=== PATIENT | male | born 1965 | race African-American/Black ===

== ENCOUNTER → 2017-07-07 | Outpatient (CLI) | payer MEDICAID ==
[~2017-07-07] MED LIST: ALBUAER3 INH; AMLO10 PO; ATOR40TA16 PO; HYDR50TA3 PO; INFL1INJ54 IM; IPRAAER INH; LOSA50TA PO; MIRA3350 PO; OXYC-395 PO; PEGPOW2; PNEU25IN IM; PROT40TA PO; TOPR100T PO
[2017-07-07 09:32] LABS: HEMATOCRIT 43.1 % (39.0-51.0); MEAN CELL VOLUME 86.8 FL (80.0-100.0); MEAN CORPUSCULAR HEMOGLOBIN 29.9 PG (27.0-34.0); MEAN CORPUSCULAR HGB CONC 34.4 % (32.0-36.0); PLATELET COUNT 253 TH/MM3 (150-450); RED BLOOD COUNT 4.97 MIL/MM3 (4.50-5.90); RED CELL DISTRIBUTION WIDTH 15.4 % (11.6-17.2); REVIEW FLAG FINAL; WHITE BLOOD COUNT 9.6 TH/MM3 (4.0-11.0)
[2017-07-07 09:34] LABS: APTT (PATIENT) 27.1 SEC (24.3-30.1); PROTHROMBIN TIME - PATIENT 10.6 SEC (9.8-11.6)
[2017-07-07 09:48] LABS: BICARBONATE 27.6 MEQ/L (21.0-32.0); POTASSIUM 3.6 MEQ/L (3.5-5.1)
--- NOTE | 2017-07-07 11:07 | RADRPT ---
EXAM DATE/TIME: 07/07/2017 10:14 [facility] COMPARISON: No previous studies available for comparison. INDICATIONS : Evaluate for pneumonia, pneumothorax or communicable disease. Pre op neck surgery. MEDICAL HISTORY : None. SURGICAL HISTORY : None. ENCOUNTER: Initial ACUITY: 1 day PAIN SCORE: 0/10 LOCATION: Bilateral chest FINDINGS: PA and lateral views of the chest demonstrate the lungs to be symmetrically aerated without evidence of mass, infiltrate or effusion. The cardiomediastinal contours are unremarkable. Osseous structure s are intact. CONCLUSION: Normal examination. Clayton Oh MD on July 07, 2017 at 11:05 Board Certified Radiologist. This report was verified electronically.
--- NOTE | 2017-07-07 14:04 | EKG ---
Date Performed: 07/07/2017 Time Performed: 09:20:24 PTAGE: 51 years EKG: Sinus rhythm IV conduction defect LVH with secondary repolarization abnormality Extensive ST-T changes may be due to hypertrophy and/or ischemia Abnormal ECG No significant change from prior electrocardiogram. PREVIOUS TRACING : 09/15/2013 19.46 DOCTOR: Tejas Lujan Interpretating Date/Time 07/07/2017 14:03:32
== END ==
LOC: CPRE 08:58
PROVIDERS: ATTEND Neurological Surgery
DX: Z01.812 Encounter for preprocedural laboratory examination (principal); Z01.811 Encounter for preprocedural respiratory examination; Z01.810 Encounter for preprocedural cardiovascular examination; M50.00 Cervical disc disorder with myelopathy, unspecified cervical region; M48.02 Spinal stenosis, cervical region; R94.31 Abnormal electrocardiogram [ECG] [EKG]
CPT/HCPCS: 36415; 71020; 80048; 85027; 85610; 85730; 93005

== ENCOUNTER 2017-07-14 05:49 | Observation (INO) | payer MEDICAID ==
[~2017-07-14] VITALS: Ht 180.3 cm; Wt 121.4 kg
[~2017-07-14 05:49] MED LIST changes: -ATOR40TA16 PO; -MIRA3350 PO; -PEGPOW2
[2017-07-14] MEDS ORDERED: POVIDONE IODINE 5% (ANTISEPSIS KIT) 4 APPLICATIONS EACH NARE PRN (06:00)
[2017-07-14] MEDS ORDERED: LACTATED RINGER'S 1000 ML IV PRN (06:00)
[2017-07-14] MEDS ORDERED: CHLORHEXIDINE GLUCONATE 2 % 1 PACK (2 CLOTHS) TOPICAL PRN (06:00)
[2017-07-14] MEDS ORDERED: SODIUM CHLORID 0.9% 500 ML IV PRN (06:00)
[2017-07-14] MEDS ORDERED: METOPROLOL TARTRATE 25 MG TAB PO PRN (06:00)
[2017-07-14] MEDS ORDERED: LACTATED RINGER'S 1000 ML INJ 1,000 ML IV SCH (06:15)
[2017-07-14] MEDS ORDERED: GENTAMICIN SULFATE 80 MG/2 ML VIAL ONE (07:02)
[2017-07-14] MEDS ORDERED: GELFOAM SIZE 100 ONE (07:02)
[2017-07-14] MEDS ORDERED: THROMBIN (TOPICAL) 5,000 UNIT VIAL ONE (07:02)
[2017-07-14] MEDS ORDERED: LIDOCAINE 1%/EPINEPHrine 1:100,000 SOLN 20 ML VIAL ONE (07:03)
[2017-07-14] MEDS ORDERED: ACETAMINOPHEN 1000 MG/100 ML 100 ML IV ONE (07:43)
[2017-07-14] MEDS ORDERED: HYDROmorphone HCL PF 2 MG/ML VIAL ONE (07:43)
[2017-07-14] MEDS ORDERED: PROPOFOL 500 MG/50 ML INJ 0 ML ONE (08:07)
[2017-07-14] MEDS: ceFAZolin 2 GM PREMIX 50 ML IV SCH ×2 (08:15→12:16)
[2017-07-14] MEDS ORDERED: PROPOFOL 200 MG/20 ML AMP ONE (11:29)
[2017-07-14] MEDS ORDERED: LIDOCAINE HCL 1% PF 5 ML SYRINGE OTHER ONE (12:00)
[2017-07-14] MEDS ORDERED: PHENYLEPH/NS 1000 MCG/10 ML SYR IV ONE (12:00)
[2017-07-14] MEDS ORDERED: NORMOSOL R INJ 2,000 ML IV ONE (12:00)
[2017-07-14] MEDS ORDERED: ePHEDrine/NS 25 MG/5 ML SYRINGE IV ONE (12:00)
[2017-07-14] MEDS ORDERED: ceFAZolin INJ 1,000 MG VIAL IV ONE (12:00)
[2017-07-14] MEDS ORDERED: GLYCOPYRROLATE 1 MG/5 ML SYRINGE IV PUSH ONE (12:00)
[2017-07-14] MEDS ORDERED: ONDANSETRON HCL 4 MG/2 ML VIAL IV ONE (12:00)
[2017-07-14] MEDS ORDERED: PROPOFOL 200 MG/20 ML AMP IV ONE (12:00)
[2017-07-14] MEDS ORDERED: SODIUM CHLORID 0.9% 500 ML INJ 500 ML IV ONE (12:00)
[2017-07-14] MEDS ORDERED: DEXAMETHASONE SOD PHOS 4 MG/ML VIAL IV ONE (12:00)
[2017-07-14] MEDS ORDERED: ROCURONIUM INJ 50 MG/5 ML SYRINGE IV PUSH ONE (12:00)
[2017-07-14] MEDS ORDERED: SUCCINYLCHOLINE CHLORIDE 100 MG/5 ML SYRINGE IV PUSH ONE (12:00)
[2017-07-14] MEDS ORDERED: LACTATED RINGER'S 1000 ML INJ 1,000 ML IV ONE (12:00)
[2017-07-14] MEDS ORDERED: PROPOFOL 500 MG/50 ML INJ 100 ML ONE ×2 (12:24→14:23)
[2017-07-14] MEDS ORDERED: DEXMEDETOMIDINE HCL 200 MCG/2 ML VIAL ONE (14:23)
[2017-07-14] MEDS ORDERED: DO NOT ADM ANY ANTICOAGULANT DRUGS PRN (15:39)
[2017-07-14] MEDS ORDERED: NON-FORMULARY DRUG (Ipratropium-Albuterol Inh (Combivent Respimat Inh) 1 PUFF) INH PRN (16:30)
[2017-07-14] MEDS ORDERED: ONDANSETRON HCL 4 MG/2 ML VIAL IV PUSH PRN (16:30)
[2017-07-14] MEDS ORDERED: ALBUTEROL SULFATE 90 MCG/ACT HFA 8 GM INHALER INH PRN (16:30)
[2017-07-14] MEDS ORDERED: ACETAMINOPHEN/HYDROcodone 325 MG/10 MG TAB PO PRN (16:30)
[2017-07-14] MEDS ORDERED: ACETAMINOPHEN/HYDROcodone 325 MG/5 MG TAB PO PRN (16:30)
[2017-07-14] MEDS ORDERED: NALOXONE HCL 0.4 MG/ML AMP IV PUSH PRN ×2 (16:30)
[2017-07-14] MEDS ORDERED: MORPHINE SULFATE 4 MG/ML INJ IV PUSH PRN (16:30)
--- NOTE | 2017-07-14 16:32 | RADRPT ---
EXAM DATE/TIME: 07/14/2017 09:38 [facility] COMPARISON: No previous studies available for comparison. INDICATIONS : c6-c7 ACDF. MEDICAL HISTORY : None. SURGICAL HISTORY : None. ENCOUNTER: Initial ACUITY: 1 day PAIN SCORE: 0/10 LOCATION: Bilateral c-spine FINDINGS: 3 fluoroscopic images of the cervical spine are available. There is a disc replacement in the upper c ervical spine. An anterior radiopaque marker is noted anterior to the lower cervical spine. Definitiv e numbering is not possible due to nonvisualization of C2. CONCLUSION: 1. Intraoperativecervical spine images, as above. Jovani Estevez MD on July 14, 2017 at 16:28 Board Certified Radiologist. This report was verified electronically.
--- NOTE | 2017-07-14 16:39 | PD.OP ---
Operative Report Date of Surgery: Jul 14, 2017 Preoperative Diagnosis: (1) Cervical disc disease with myelopathy 1. C3-4 herniated nucleus pulposis 2. Severe C3-4 stenosis with spinal cord compression 3. C6-7 degenerative disc disease 4. C6-7 stenosis with cord compression 5. Cervical myelopathy Postoperative Diagnosis: (1) Cervical disc disease with myelopathy 1. C3-4 herniated nucleus pulposis 2. Severe C3-4 stenosis with spinal cord compression 3. C6-7 degenerative disc disease 4. C6-7 stenosis with cord compression 5. Cervical myelopathy Procedure: Procedure #1: 1. C3-4 anterior cervical discectomy, resection herniated nucleus pulposus 2. C3-4 cervical artificial disc placement (Mobi-C) Procedure #2: Via separate incision 1. C6-7 anterior cervical discectomy, resection posterior osteophytic disc complex, bilateral foraminotomy-microtechnique 2. C6-7 anterior cervical interbody fusion, composite allograft bone 3. C6-7 anterior cervical instrumentation Anesthesia: Gen. Surgeon: Aron Bermudez Bit Tripoler(s): Hodan Arreaga Operation and Findings: Findings: Large sequestered disc herniation at the central to right C3 4 level Prominent posterior osteophytic disc complexes at the C6-7 level Procedure in detail: The patient was brought into the operating room and positioned in supine position on the 3080 table with the head and neck in neutral position. Yang catheter was placed. Lines were established by Anesthesia. Gen. endotracheal anesthesia was induced without difficulty, taking care not to significantly flex or extend the patient's neck during intubation and positioning. Leads for intraoperative neuro monitoring were placed and a baseline study obtained. All extremities were appropriately padded. The neck and upper chest were shaved with clippers and sterilely prepped and draped. Appropriate timeout procedure was performed with all personnel present and in agreement 1% Xylocaine with epinephrine was used for local infiltration over the incision site which was made transversely at the C3-4 level and carried sharply down through the platysma muscle. The exposure was continued medial to the sternocleidomastoid muscle and carotid artery, and lateral to the trachea and esophagus. The prevertebral fascia was elevated away from the anterior longitudinal ligament with a Kitner sponge. The longus coli muscle on each side was elevated with the Garcia elevator. The self-retaining retractor was placed with the blades beneath the longus coli muscle on each side. The appropriate levels were confirmed with intraoperative C-arm and preoperative imaging studies. The microscope was brought into place and used for the remainder of the procedure including the closure. At the C3-4 level, 14 mm distraction pins were used as needed for gentle distraction during the procedure. The anterior osteophyte was resected with the Leksell rongeur. The disc and annulus was incised with a 15 blade knife and discectomy performed with pituitary biopsy forceps and straight and angled curettes. The endplates were thoroughly cleaned with a curette. The TPS drill with the 4 mm barrel bur was used to remove the posterior margin of the vertebral body to remove any osteophytes and allow adequate access to the anterior spinal canal. The thin ligament dissector was used to free up the posterior annulus and ligament from the vertebral body margin. The remainder of the resection of the posterior annulus and ligament as well as the posterior osteophyte and bilateral uncovertebral joint as needed was performed with the 2 and 3 mm thin footplate Kerrison rongeurs. A large component of herniated nucleus pulposus was encountered posterior to the annulus at the central to right C3-4 level, and was lifted away from the thecal sac with the thickened ligament dissector and removed. The appropriate size Mobi- C implant was then chosen using the trial. Using anatomic landmarks, and AP and lateral C-arm imaging, the appropriate size Mobi - C then placed with a good fit of the implant. The blunt nerve hook was used to probe beneath the implant to ensure that there was no impingement on the thecal sac or exiting nerve roots. The entire construct was checked with intraoperative C-arm and felt to be satisfactory. The closure was performed with 3-0 Vicryl running for the platysma and interrupted for the subcutaneous closure, with 4-0 Vicryl running for the subcuticular closure. Procedure #2: 1% Xylocaine with epinephrine was used for local infiltration over the incision site which was made transversely at the left C6-7 level and carried sharply down through the platysma muscle. The exposure was continued medial to the sternocleidomastoid muscle and carotid artery, and lateral to the trachea and esophagus. The prevertebral fascia was elevated away from the anterior longitudinal ligament with a Kitner sponge. The longus coli muscle on each side was elevated with the Garcia elevator. The self-retaining retractor was placed with the blades beneath the longus coli muscle on each side. The appropriate levels were confirmed with intraoperative C-arm and preoperative imaging studies. The microscope was brought into place and used for the remainder of the procedure including the closure. The 14 mm distraction pins were used as needed for gentle distraction during the procedure. The procedure was performed at the C6-7 level. The anterior osteophyte was resected with the Leksell rongeur. The disc and annulus was incised with a 15 blade knife and discectomy performed with pituitary biopsy forceps and straight and angled curettes. The TPS drill with the 5 mm barrel bur was used to decorticate the endplates and removed the majority of the osteophyte along the anterior spinal canal as well as the right and left uncovertebral joint. The inferior third of the C6 vertebral body was removed to adequately resect the underlying osteophyte. The thin ligament dissector was used to free up the posterior annulus and ligament from the vertebral body margin. The remainder of the resection of the posterior annulus and ligament as well as the posterior osteophyte and bilateral uncovertebral joint was performed with the 2 and 3 mm thin footplate Kerrison rongeurs. Significant posterior osteophyte was encountered and extensively removed. The posterior vertebral bodies were undercut with the Kerrison rongeur and the TPS drill with the 4 mm bj bur as needed to fully decompress the anterior spinal canal. The appropriate size V G2 bone graft was then placed at each level with a good fit of the graft. The blunt nerve hook was used to probe beneath the bone graft to ensure that there was no impingement on the thecal sac or exiting nerve roots. The appropriate size Precision anterior cervical plate was then chosen and the bone screws were placed with the 16 mm fixed screws at the caudal most level and the 16 mm variable screws at the cephalad level of the decompression. The screws were firmly secured and the locking cams engaged. The entire construct was checked with intraoperative C-arm and felt to be satisfactory. The 10 Turkmen drain was brought out through a small incision in the left lower neck and secured to the skin with nylon suture and attached to sterile suction. The closure was performed with 3-0 Vicryl running for the platysma and interrupted for the subcutaneous closure, with 4-0 Vicryl running for the subcuticular closure. A dressing of sterile Mastisol, Steri-Strips, and Primapore dressing was placed. The patient was placed into a cervical collar, and taken to recovery room in stable condition. All counts were correct at the end of the case. Estimated blood loss was 100 cc No specimen was sent to pathology. Intraoperative neuro monitoring remained stable during the procedure. Aron Bermudez MD Jul 14, 2017 16:39
[2017-07-14] MEDS: D5-1/2 NS + KCL 20 MEQ INJ 1,000 ML IV SCH (16:45)
[2017-07-14] MEDS ORDERED: *morphine SULFATE 4 MG/ML PERIprocedure ONLY ONE (16:47)
[2017-07-14] MEDS ORDERED: PT:COMBIVENT RESPIMAT INH PRN (17:15)
[2017-07-14 17:40] VITALS: BP 124/63; PULSE 70; RESP 18; TEMP 97.8; O2SAT 95
[2017-07-14] MEDS: MORPHINE SULFATE 2 MG/ML INJ IV PUSH PRN (20:09)
[2017-07-14 20:15] VITALS: BP 150/85; PULSE 61; RESP 18; TEMP 96.9; O2SAT 96
[2017-07-14] MEDS: LOSARTAN 50 MG TAB PO SCH (21:20)
[2017-07-14] MEDS: PANTOPRAZOLE SOD 40 MG DELAYED RELEASE TAB PO SCH (21:20)
[2017-07-14] MEDS: METOPROLOL SUCCINATE 50 MG EXTENDED RELEASE TAB PO SCH (21:20)
[2017-07-14] MEDS: DOCUSATE SODIUM 100 MG CAP PO SCH (21:20)
[2017-07-14 23:31] VITALS: BP 138/65; PULSE 88; RESP 17; TEMP 96.8; O2SAT 98
[2017-07-15] MEDS: MORPHINE SULFATE 2 MG/ML INJ IV PUSH PRN (00:12)
[2017-07-15] MEDS: D5-1/2 NS + KCL 20 MEQ INJ 1,000 ML IV SCH (03:05)
[2017-07-15] MEDS: oxyCODONE/ACETAMINOPHEN 10 MG/325 MG TAB PO PRN ×3 (03:09→14:41)
[2017-07-15 03:56] VITALS: BP 135/82; PULSE 52; RESP 18; TEMP 97.1; O2SAT 96
[2017-07-15] MEDS: PANTOPRAZOLE SOD 40 MG DELAYED RELEASE TAB PO SCH (07:10)
[2017-07-15] MEDS: LOSARTAN 50 MG TAB PO SCH (07:10)
[2017-07-15] MEDS: METOPROLOL SUCCINATE 50 MG EXTENDED RELEASE TAB PO SCH (07:11)
[2017-07-15 07:15] LABS: BASOPHIL % 0.1 % (0.0-2.0); HEMATOCRIT 42.7 % (39.0-51.0); HEMOGLOBIN 14.5 GM/DL (13.0-17.0); LYMPH % 10.9 % (9.0-44.0); LYMPHOCYTE # 1.7 TH/MM3 (1.0-4.8); MEAN CELL VOLUME 87.8 FL (80.0-100.0); MEAN CORPUSCULAR HEMOGLOBIN 29.7 PG (27.0-34.0); MEAN CORPUSCULAR HGB CONC 33.9 % (32.0-36.0); MEAN PLATELET VOLUME 7.9 FL (7.0-11.0); MONO % 5.8 % (0.0-8.0); MONOCYTE # 0.9 TH/MM3 (0-0.9); NEUT % 83.2 % (16.0-70.0); PLATELET COUNT 244 TH/MM3 (150-450); RED BLOOD COUNT 4.86 MIL/MM3 (4.50-5.90); RED CELL DISTRIBUTION WIDTH 15.7 % (11.6-17.2); WHITE BLOOD COUNT 15.6 TH/MM3 (4.0-11.0)
[2017-07-15] MEDS: DOCUSATE SODIUM 100 MG CAP PO SCH (07:15)
[2017-07-15 07:27] LABS: CREATININE 1.3 MG/DL (0.60-1.30)
[2017-07-15 07:33] LABS: BICARBONATE 26.8 MEQ/L (21.0-32.0)
[2017-07-15 08:00] VITALS: BP 148/76; PULSE 50; RESP 17; TEMP 95.5; O2SAT 96
[2017-07-15] MEDS ORDERED: HYDROCHLOROTHIAZIDE 50 MG TAB PO SCH (09:00)
[2017-07-15 09:23] VITALS: O2SAT 100
[2017-07-15 11:32] VITALS: BP 141/90; PULSE 50; RESP 18; TEMP 95.6; O2SAT 95
[2017-07-15 15:00] VITALS: BP 142/79; PULSE 56; RESP 18; TEMP 95.9; O2SAT 97
--- NOTE | 2017-07-15 16:11 | HHI.NSPN ---
History Chief Complaint: Some numbness to the left knee. Interval History 07/14: The patient presented to [facility] to undergo a C3-4 anterior cervical discectomy with Mobi-C placement and a C6-7 anterior cervical discectomy, interbody fusion and instrumentation through a separate incision. Post-operatively the patient was admitted to a regular med/surg floor for further monitoring and care. 07/15: The patient is awake and alert when seen. He is in a [place] cervical collar. He has no midline cervical pain but does say he has some mild pain to the surgical sites. After surgery he states he had numbness to the left lower extremity and he wasn't able to ambulate. Today the numbness has improved and is only at the left knee. He denies any pain, tingling, weakness or other numbness to the extremities. He has been up and ambulating on his own with a wheeled walker. Physical Therapy did evaluate him and felt that he was able to be safely discharged home without any skilled needs. It was recommended that the patient have a wheeled walker which he does not have. System Review Comments NECK: Some pain to the surgical sites. NEUROLOGICAL: Some numbness to the left knee that is getting better. Exam Results 07/13/17 07/13/17 07/14/17 07/14/17 07/15/17 07/15/17 06:00 18:00 06:00 18:00 06:00 18:00 Intake Total 2500 ml 1899 ml 720 ml Output Total 1950 ml 725 ml 1450 ml Balance 550 ml 1174 ml -730 ml Intake Oral 480 ml 720 ml IV Total 2500 ml 1419 ml Output Urine Total 600 ml 675 ml 1450 ml Drainage Total 50 ml Estimated Blood Loss 100 ml Other 1250 ml # Bowel Movements 0 0 Vital Signs Date Time Temp Pulse Resp B/P (MAP) Pulse Ox O2 Delivery O2 Flow Rate FiO2 07/15/17 11:32 95.6 50 18 141/90 (107) 95 07/15/17 09:23 100 21 07/15/17 08:00 95.5 50 17 148/76 (100) 96 07/15/17 03:56 97.1 52 18 135/82 (99) 96 07/14/17 23:31 96.8 88 17 138/65 (89) 98 07/14/17 20:15 96.9 61 18 150/85 (106) 96 07/14/17 20:14 18 07/14/17 17:40 97.8 70 18 124/63 (83) 95 07/14/17 17:15 68 16 130/68 (88) 97 Nasal Cannula 2 07/14/17 17:15 Nasal Cannula 2.00 07/14/17 17:00 69 16 126/69 (88) 97 Nasal Cannula 2 07/14/17 16:45 70 16 130/66 (87) 95 Nasal Cannula 2 07/14/17 16:30 70 16 138/69 (92) 94 Nasal Cannula 2 07/14/17 16:15 71 16 136/57 (83) 94 Nasal Cannula 2 07/14/17 16:00 66 16 105/55 (72) 93 Nasal Cannula 2 07/14/17 15:38 98.5 68 16 90/53 (65) 97 Nasal Cannula 2 07/14/17 06:15 97.7 61 20 139/86 (103) 98 Physical Examination GENERAL: Awake & alert in bed talking on his cellphone. Readily interacts. Normal affect. No apparent distress. HEENT: Normocephalic, atraumatic. NECK: [place] cervical collar in place. Anterior neck surgical site dressing in place w/DARCY drain to bulb suction w/serosanguinous drainage, incisions mildly TTP. No JVD. Trachea midline. Midline cervical spine NTTP. MUSCULOSKELETAL: MARES spontaneously w/o any difficulty. No evident clubbing. Bout[place] deformity to 5th digit of both hands. NEUROLOGICAL: AAOx3. Speech clear & appropriate. Follows simple commands w/o difficulty. Sensation decreased to light touch to the left knee, o/w intact to the extremities. Motor strength is 5/5 to all major flexion & extension muscle groups and to the hand intrinsics & extrinsics. Lab, Micro, Other Results Recent Impressions Cervical Spine X-Ray 07/14/17 0000 Signed Impressions: Service Date/Time: Friday, July 14, 2017 09:38 - CONCLUSION: 1. Intraoperativecervical spine images, as above. Jovani Estevez MD Laboratory Tests Test 07/15/17 06:33 White Blood Count 15.6 TH/MM3 Red Blood Count 4.86 MIL/MM3 Hemoglobin 14.5 GM/DL Hematocrit 42.7 % Mean Corpuscular Volume 87.8 FL Mean Corpuscular Hemoglobin 29.7 PG Mean Corpuscular Hemoglobin Concent 33.9 % Red Cell Distribution Width 15.7 % Platelet Count 244 TH/MM3 Mean Platelet Volume 7.9 FL Neutrophils (%) (Auto) 83.2 % Lymphocytes (%) (Auto) 10.9 % Monocytes (%) (Auto) 5.8 % Eosinophils (%) (Auto) 0.0 % Basophils (%) (Auto) 0.1 % Neutrophils # (Auto) 13.0 TH/MM3 Lymphocytes # (Auto) 1.7 TH/MM3 Monocytes # (Auto) 0.9 TH/MM3 Eosinophils # (Auto) 0.0 TH/MM3 Basophils # (Auto) 0.0 TH/MM3 CBC Comment DIFF FINAL Differential Comment Blood Urea Nitrogen 18 MG/DL Creatinine 1.30 MG/DL Random Glucose 115 MG/DL Calcium Level 9.0 MG/DL Sodium Level 136 MEQ/L Potassium Level 4.3 MEQ/L Chloride Level 103 MEQ/L Carbon Dioxide Level 26.8 MEQ/L Anion Gap 6 MEQ/L Estimat Glomerular Filtration Rate 70 ML/MIN Medical Decision Making Impression and Plan Impression: Preoperative Diagnosis: (1) Cervical disc disease with myelopathy 1. C3-4 herniated nucleus pulposis 2. Severe C3-4 stenosis with spinal cord compression 3. C6-7 degenerative disc disease 4. C6-7 stenosis with cord compression 5. Cervical myelopathy The patient is doing well post-operatively. He only has mild surgical site pain. He does have some numbness to the left knee which is improving. Reviewed labs from this morning. Leukocytosis which is most likely reactive to surgery. DARCY drain output 50 mL as of this morning. Physical Therapy recommends discharge home w/o any skilled needs, wheeled walker recommended. POD #1 () s/p: Procedure #1: 1. C3-4 anterior cervical discectomy, resection herniated nucleus pulposus 2. C3-4 cervical artificial disc placement (Mobi-C) Procedure #2: Via separate incision 1. C6-7 anterior cervical discectomy, resection posterior osteophytic disc complex, bilateral foraminotomy-microtechnique 2. C6-7 anterior cervical interbody fusion, composite allograft bone 3. C6-7 anterior cervical instrumentation Postoperative Diagnosis: (1) Cervical disc disease with myelopathy 1. C3-4 herniated nucleus pulposis 2. Severe C3-4 stenosis with spinal cord compression 3. C6-7 degenerative disc disease 4. C6-7 stenosis with cord compression 5. Cervical myelopathy Plan: Maintain [place] cervical collar. Will discontinue the DARCY drain. Will discontinue the Yang catheter. Will discharge patient after he voids. Renny Monroy Jul 15, 2017 16:11
[2017-07-15] MEDS ORDERED: WALKER WHEELS/F1 MIS (16:14)
--- NOTE | 2017-07-15 16:21 | HHI.DCPOC ---
Discharge Care Plan Diagnosis: (1) Cervical disc disease with myelopathy (2) Status post cervical discectomy Your Health Problems Are: Incision/Drains Exercise Tolerance Goals to Promote Your Health * To prevent worsening of your condition and complications * To maintain your health at the optimal level Wear the [place] cervical collar at all times. It may briefly be removed to clean the skin. No lifting, bending, pushing, pulling or other strenuous activity. Leave the dressing on over the surgical incisions for 1 week. After that you may take the outer dressing off but leave the steri-strips on and let them fall off on their own. No showering until the surgical incision is totally healed. Take the pain medication as prescribed. Avoid taking any medication that contains aspirin or NSAIDs (ibuprofen, naproxen , Motrin, Advil, Naprosyn) for at least a month. Follow up in the office in two weeks for a wound check. Directions to Meet Your Goals Take your medications as prescribed Follow your dietary instruction Follow activity as directed Keep your appointments as scheduled Take your immunizations and boosters as scheduled If your symptoms worsen call your PCP, if no PCP go to Urgent Care Center or Emergency Room Smoking is Dangerous to Your Health. Avoid second hand smoke Call the 24-hour hour crisis hotline for domestic abuse at Renny Monroy Jul 15, 2017 16:21 Aron Bermudez MD Jul 15, 2017 17:30
--- NOTE | 2017-07-15 16:24 | HHI.DS ---
Renny Monroy [facility] 07/15/17 1624: Discharge Summary Admission Date Jul 14, 2017 at 16:40 Discharge Date: Jul 15, 2017 Admitting Diagnosis (1) Cervical disc disease with myelopathy Diagnosis: Principal ICD Code: M50.00 - Cervical disc disorder with myelopathy, unspecified cervical region (2) Status post cervical discectomy Diagnosis: Secondary ICD Code: Z98.890 - Other specified postprocedural states CBC/BMP: 07/15/17 0633 07/15/17 0633 Significant Findings Laboratory Tests Test 07/15/17 06:33 White Blood Count 15.6 TH/MM3 (4.0-11.0) Neutrophils (%) (Auto) 83.2 % (16.0-70.0) Neutrophils # (Auto) 13.0 TH/MM3 (1.8-7.7) Random Glucose 115 MG/DL (74-106) Estimat Glomerular Filtration Rate 70 ML/MIN (>89) Hospital Course 07/14: The patient presented to [facility] to undergo a C3-4 anterior cervical discectomy with Mobi-C placement and a C6-7 anterior cervical discectomy, interbody fusion and instrumentation through a separate incision. Post-operatively the patient was admitted to a regular med/surg floor for further monitoring and care. 07/15: The patient is awake and alert when seen. He is in a [place] cervical collar. He has no midline cervical pain but does say he has some mild pain to the surgical sites. After surgery he states he had numbness to the left lower extremity and he wasn't able to ambulate. Today the numbness has improved and is only at the left knee. He denies any pain, tingling, weakness or other numbness to the extremities. He has been up and ambulating on his own with a wheeled walker. Physical Therapy did evaluate him and felt that he was able to be safely discharged home without any skilled needs. It was recommended that the patient have a wheeled walker which he does not have. Pt Condition on Discharge: Good Discharge Disposition: Discharge Home Discharge Instructions DIET: Follow Instructions for: As Tolerated, No Restrictions ACTIVITIES You can perform: Full Weight Bearing Activities to Avoid: Contact Sports, Lifting/Bending, Strenuous Activity, Shower ADDITIONAL Activity Instructio: Wear the [place] cervical collar at all times. It may briefly be removed to clean the skin. No lifting, bending, pushing, pulling or other strenuous activity. No showering until the surgical incision is totally healed. Additional Information Leave the dressing on over the surgical incisions for 1 week. After that you may take the outer dressing off but leave the steri-strips on and let them fall off on their own. No showering until the surgical incision is totally healed. Take the pain medication as prescribed. Avoid taking any medication that contains aspirin or NSAIDs (ibuprofen, naproxen , Motrin, Advil, Naprosyn) for at least a month. Follow up in the office in two weeks for a wound check. Aron Bermudez MD 07/15/17 1729: Discharge Summary CBC/BMP: 07/15/17 0633 07/15/17 0633 Renny Monroy Jul 15, 2017 16:24 Aron Bermudez MD Jul 15, 2017 17:29
[2017-07-15] MEDS ORDERED: OXYC-395 PO (17:28)
== END 2017-07-15 17:41 | disposition home or self-care (01) ==
LOC: HSDC 05:49 → HSDI 16:40 → INTOOBSV 16:40 → N06B 17:15
PROVIDERS: ADMIT Neurological Surgery; ATTEND Neurological Surgery
DX: M50.00 Cervical disc disorder with myelopathy, unspecified cervical region (principal); M48.02 Spinal stenosis, cervical region; D72.829 Elevated white blood cell count, unspecified; I10 Essential (primary) hypertension; E78.5 Hyperlipidemia, unspecified; J44.9 Chronic obstructive pulmonary disease, unspecified
CPT/HCPCS: 00600; 20930; 22551; 22552; 22845; 22856; 72040; 76000; 80048; 85025; 94150; 97163; C1713; C1889; G0378; G8987; G8988; J0131; J0330; J0690; J1100; J1170; J1580; J2270; J2370; J2405; J3480; J7040; J7120

== ENCOUNTER 2017-07-26 15:12 | Emergency (ER) | payer MEDICAID ==
[~2017-07-26] VITALS: Ht 180.3 cm; Wt 113.5 kg
[~2017-07-26 15:12] MED LIST changes: +WALKER WHEELS/F1 MIS
[2017-07-26 15:24] VITALS: BP 130/80; PULSE 55; RESP 16; TEMP 98.5; O2SAT 95
--- NOTE | 2017-07-26 16:15 | PD ---
HPI Chief Complaint: Pain: Acute or Chronic Time Seen by Provider: 15:54 Travel History International Travel<30 days: No Contact w/Intl Traveler<30days: No Traveled to known affect area: No History of Present Illness HPI 51-year-old male presents to emergency Department with complaint of bilateral foot pain for the past 3 days. Right foot is worse than the left foot. Denies injury. Denies fever, vomiting. Reports numbness and tingling to both of his feet. Denies history of diabetes or neuropathy. Rates pain 8/10. Describes it as a pressure. Worse with pressure to the foot and ambulation. Better at rest. Took oxycodone this morning and it helped with his pain. Primary care provider is Dr. Desouza. Allergies to lisinopril. History of hypertension, GERD, hypercholesterolemia. Has no other medical complaints. No other modifying factors or associated signs and symptoms. PFSH Past Medical History Blood Disorders: No Cancer: No Cardiovascular Problems: Yes Cerebrovascular Accident: Yes (2013, no residual) Diabetes: No Diminished Hearing: No Endocrine: No Gastrointestinal Disorders: Yes (PANCREATITIS) Genitourinary: No Hepatitis: No Hiatal Hernia: No Hypertension: Yes Immune Disorder: No Implanted Vascular Access Dvce: No Medical other: No Musculoskeletal: Yes (ARTHRITIS) Neurologic: Yes (STROKE WITH R SIDE WEAKNESS MAY 2014) Psychiatric: No Reproductive: No Respiratory: Yes (ASTHMA AND COPD) Immunizations Current: No Pancreatitis: Yes Thyroid Disease: No Past Surgical History AICD: No Body Medical Devices: NONE PER PT Joint Replacement: No Pacemaker: No Other Surgery: No Social History Alcohol Use: No (DENIES) Tobacco Use: Yes (less than 1 PPD) Substance Use: Yes (thc OCCASIONALLY) Allergies-Medications (Allergen,Severity, Reaction): Coded Allergies: lisinopril (Unverified Allergy, Severe, Swelling/ANAPHYLAXIS, 07/26/17) Reported Meds & Prescriptions Reported Meds & Active Scripts Active Wheelchair 1 Each Each Ea Walker/Adult/Folding (Device) 1 Mis Mis Ea .ROUTE DIRECTED Neurontin (Gabapentin) 100 Mg Cap 100 Mg PO TID Oxycodone (Oxycodone HCl) 10 Mg Tab 10 Mg PO Q6H PRN Walker with Front Wheels (Device) 1 Mis Mis Ea .ROUTE DIRECTED Protonix (Pantoprazole Sodium) 40 Mg Tab 40 Mg PO BID Hydrochlorothiazide 50 Mg Tab 50 Mg PO DAILY Norvasc (Amlodipine Besylate) 10 Mg Tab 10 Mg PO DAILY Oxycodone (Oxycodone HCl) 10 Mg Tab 10 Mg PO Q6HR PRN Reported Proair Hfa 8.5 GM Inh (Albuterol Sulfate) 90 Mcg/Act Aer 2 Puff INH Q6H PRN 108 mcg/actuation Combivent Respimat Inh (Ipratropium-Albuterol Inh) 20-100 Fpc/Act Aero 1 Puff INH TID PRN Toprol XL (Metoprolol Succinate) 100 Mg Tab 100 Mg PO BID Losartan (Losartan Potassium) 50 Mg Tab 50 Mg PO BID Review of Systems Except as stated in HPI: all other systems reviewed are Neg Physical Exam Narrative GENERAL: Well-nourished, well-developed black male patient, in no acute distress SKIN: Warm and dry. HEAD: Atraumatic. Normocephalic. EYES: Pupils equal and round. No scleral icterus. No injection or drainage. ENT: Mucosa pink and moist. Airway patent. NECK: Trachea midline. CARDIOVASCULAR: Regular rate. RESPIRATORY: No accessory muscle use. GASTROINTESTINAL: Rounded. MUSCULOSKELETAL: Left foot without erythema, edema, ecchymosis; 2+ pedal pulse; tenderness on palpation to the dorsal aspect of the metatarsal region; sensory intact; no obvious deformity. Right foot is mildly edematous and without erythema, ecchymosis; 2+ pedal pulse; tenderness on palpation to the heel aspect ; no obvious deformities; sensory intact. No obvious deformities. No clubbing. No cyanosis. No edema. NEUROLOGICAL: Awake and alert. Oriented 3. No obvious cranial nerve deficits. Motor grossly within normal limits. Normal speech. PSYCHIATRIC: Appropriate mood and affect; insight and judgment normal. Data Data Last Documented VS Vital Signs Date Time Temp Pulse Resp B/P (MAP) Pulse Ox O2 Delivery O2 Flow Rate FiO2 07/26/17 15:51 75 17 07/26/17 15:24 98.5 130/80 (97) 95 Orders Orders Foot, Complete ([id number]) (07/26/17 16:05) Crutches (07/26/17 16:05) Ketorolac Inj (Toradol Inj) (07/26/17 16:45) Ed Discharge Order (07/26/17 17:40) MDM Medical Decision Making Medical Screen Exam Complete: Yes Emergency Medical Condition: Yes Medical Record Reviewed: Yes Differential Diagnosis Plantar fasciitis, heel spurs, stress fracture Narrative Course 51-year-old male with bilateral foot pain. He was seen on April 03, 2016 and an x-ray of his left foot was obtained and negative. Patient has taken oxycodone prior to arrival for pain. I will x-ray the right foot to rule out acute process. Crutches provided for support. 1735: Right foot x-ray concludes: Foot X-Ray 07/26/17 1605 Signed Impressions: Service Date/Time: Wednesday, July 26, 2017 16:12 - CONCLUSION: 1. There is no evidence of acute fracture. Mild degenerative changes as above Francis Coronel MD A copy of the x-ray report was provided to the patient. Dr. escobar recommended prescription for gabapentin. Gabapentin, walker, wheelchair prescriptions provided. Instructed patient to follow up with podiatry. Instructed patient to follow up with primary care provider. Patient verbalizes understanding and agreement with treatment plan. Patient is medically cleared and stable for discharge. Discussed reasons to return to the emergency department. Patient agrees with treatment plan. The patients vital signs are stable and the patient is stable for outpatient follow-up and treatment. Patient discharged home, stable and in no acute distress. Diagnosis Primary Impression: Bilateral foot pain Additional Impression: Numbness and tingling of both feet Referrals: [facility] Primary Care Physician Patient Instructions: General Instructions, Peripheral Neuropathy (ED) Additional Instructions: Neurontin/gabapentin as prescribed Crutches, walker, cane as needed for support Follow-up with podiatry Follow-up with primary care provider Med/Other Pt SpecificInfo: Prescription(s) given Scripts Wheelchair (Wheelchair) 1 Each Each EA, #1 Prov: Adina Veloz 07/26/17 Walker/Adult/Folding (Walker/Adult/Folding) 1 Mis Mis EA .ROUTE DIRECTED, #1 0 Refills Prov: Adina Veloz 07/26/17 Gabapentin (Neurontin) 100 Mg Cap 100 MG PO TID for Pain, #10 CAP 0 Refills Prov: Adina Veloz 07/26/17 Disposition: DISCHARGE HOME Condition: Stable Adina Veloz Jul 26, 2017 16:15
[2017-07-26] MEDS ORDERED: KETOROLAC TROMETHAMINE 60 MG/2 ML (IM) VIAL IM ONE (16:45)
--- NOTE | 2017-07-26 17:09 | RADRPT ---
EXAM DATE/TIME: 07/26/2017 16:12 [facility] COMPARISON: No previous studies available for comparison. INDICATIONS : Right anterior foot pain, denies injury MEDICAL HISTORY : None. SURGICAL HISTORY : None. ENCOUNTER: Initial ACUITY: 3 days PAIN SCORE: 7/10 LOCATION: Right Foot FINDINGS: There is no evidence of acute fracture. Bony mineralization is normal. There is beaking of the dorsal aspect of the talus. Soft tissues are intact. CONCLUSION: 1. There is no evidence of acute fracture. Mild degenerative changes as above Francis Coronel MD on July 26, 2017 at 17:05 Board Certified Radiologist. This report was verified electronically.
[2017-07-26] MEDS ORDERED: NEUR100C PO (17:36)
[2017-07-26] MEDS ORDERED: WHEE1EAC (17:37)
[2017-07-26] MEDS ORDERED: WALKER/ADULT/FO1 MIS (17:37)
== END 2017-07-26 18:04 | disposition home or self-care (01) ==
LOC: NEPD 15:12
DX: M79.672 Pain in left foot (principal); M79.671 Pain in right foot; R20.0 Anesthesia of skin; R20.2 Paresthesia of skin; I10 Essential (primary) hypertension; K21.9 Gastro-esophageal reflux disease without esophagitis; E78.00 Pure hypercholesterolemia, unspecified; J44.9 Chronic obstructive pulmonary disease, unspecified; Z87.19 Personal history of other diseases of the digestive system
CPT/HCPCS: 73630; 96372; 99284; E0113; J1885